=== PATIENT | female | born 1945 | race Caucasian/White ===

== ENCOUNTER 2016-11-06 20:10 | Emergency (ER) | payer OTHER ==
[~2016-11-06] VITALS: Ht 157.5 cm; Wt 76.9 kg
[~2016-11-06 20:10] MED LIST: AMLO2.5T PO; LISI-363 PO; ROSU5 PO; VITA500015 PO
[2016-11-06 20:25] VITALS: BP 206/87; PULSE 102; RESP 16; TEMP 97.9; O2SAT 94
[2016-11-06 20:42] VITALS: BP 186/84; PULSE 89; RESP 16; O2SAT 100
[2016-11-06 20:44] LABS: BLOOD, URINE SMALL (NEG); GLUCOSE,URINE NEG (NEG); KETONE, URINE NEG (NEG); PH, URINE 5.5 (5.0-8.5)
[2016-11-06] MEDS ORDERED: D-50TAB (20:51)
[2016-11-06] MEDS ORDERED: ASPI81TA81 (20:51)
[2016-11-06] MEDS ORDERED: AMLO2.5T PO (20:51)
[2016-11-06] MEDS ORDERED: ROSU5 PO (20:51)
[2016-11-06] MEDS ORDERED: LISI-515 PO (20:51)
[2016-11-06 20:52] LABS: NITRITE,URINE POS (NEG); URINE COLOR YELLOW (YELLW/STRAW)
[2016-11-06 20:54] LABS: BACTERIA, URINE MOD /hpf; COMMENT (UR) CULTURE INDICATED; CULTURE IF INDICATED CULTURE INDICATED; SQUAMOUS EPITHELIAL CELL URINE 0-5 /hpf (0-5)
--- NOTE | 2016-11-06 20:56 | PD ---
HPI Chief Complaint: Complaint Time Seen by Provider: 20:33 Travel History International Travel<30 days: No Contact w/Intl Traveler<30days: No Traveled to known affect area: No History of Present Illness HPI SINCE MONDAY HAS HAD BURNING ON URINATION, FREQUENCY AND URGENCY, STATES THAT SHE GETS THESE UTI ABOUT 2-3 A YEAR. STATES THAT SHE WILL MAKE APPT WITH UROLOGIST TO FURTHER INVESTIGATE IF THERE'S A REASON FOR FREQUENCY OF INFECTIONS. PATIENT HAS NO ALLEVIATING/AGGRAVATING FACTORS, AND APPARENTLY HAS ONLY ASSOCIATED SX OF CHILLS BUT NOT FEVER/N/V/D/BOTELLO/CP/ABD PAIN AT THIS POINT PFSH Past Medical History High Cholesterol: Yes Diminished Hearing: No Gastrointestinal Disorders: Yes (HEMORRHOIDS) Hypertension: Yes Immunizations Current: No Migraines: Yes Pneumonia: Yes (WALKING) ?: Not Menopausal: Yes : 1 Para: 1 Ovarian Cysts: Yes Past Surgical History Appendectomy: Yes Gynecologic Surgery: Yes (CYST REMOVED FROM RIGHT BREAST) Hysterectomy: Yes Oral Surgery: Yes Tonsillectomy: Yes Other Surgery: Yes (SINUS SURGERY TO "REMOVE A GROWTH") Social History Alcohol Use: Yes ("MAYBE A GLASS OF WINE ONCE A MONTH") Tobacco Use: No (QUIT 1999) Substance Use: No Allergies-Medications (Allergen,Severity, Reaction): Coded Allergies: Codeine (Verified Adverse Reaction, Severe, NAUSEA/VOMITING, 11/06/16) Reported Meds & Prescriptions Reported Meds & Active Scripts Active Reported D-5000 (Cholecalciferol) 5,000 Unit Tab Aspir-81 (Aspirin) 81 Mg Tabdr Crestor (Rosuvastatin Calcium) 5 Mg Tab 5 Mg PO DAILY Lisinopril 20 Mg Tab 20 Mg PO DAILY Amlodipine (Amlodipine Besylate) 2.5 Mg Tab 2.5 Mg PO DAILY Review of Systems Except as stated in HPI: all other systems reviewed are Neg Genitourinary: Positive: Urgency, Frequency, Dysuria Physical Exam Narrative GENERAL: SKIN: Warm and dry. HEAD: Atraumatic. Normocephalic. EYES: Pupils equal and round. No scleral icterus. No injection or drainage. ENT: No nasal bleeding or discharge. Mucous membranes pink and moist. NECK: Trachea midline. No JVD. CARDIOVASCULAR: Regular rate and rhythm. RESPIRATORY: No accessory muscle use. Clear to auscultation. Breath sounds equal bilaterally. GASTROINTESTINAL: Abdomen soft, non-tender, nondistended. MUSCULOSKELETAL: Extremities without clubbing, cyanosis, or edema. No obvious deformities. NEUROLOGICAL: Awake and alert. No obvious cranial nerve deficits. Motor grossly within normal limits. Five out of 5 muscle strength in the arms and legs. Normal speech. PSYCHIATRIC: Appropriate mood and affect; insight and judgment normal. Data Data Last Documented VS Vital Signs Date Time Temp Pulse Resp B/P Pulse Ox O2 Delivery O2 Flow Rate FiO2 11/06/16 20:42 89 16 186/84 100 Room Air 11/06/16 20:25 97.9 Orders Urinalysis - C+S If Indicated (11/06/16 20:28) Clonidine (Catapres) (11/06/16 21:00) Urine Culture (11/06/16 20:35) Labs Laboratory Tests Test 11/06/16 20:35 Urine Color YELLOW Urine Turbidity CLEAR Urine pH 5.5 Urine Specific Pharr 1.007 Urine Protein NEG mg/dL Urine Glucose (UA) NEG mg/dL Urine Ketones NEG mg/dL Urine Occult Blood SMALL Urine Nitrite POS Urine Bilirubin NEG Urine Leukocyte Esterase LARGE Urine RBC 4-9 /hpf Urine WBC 25-49 /hpf Urine WBC Clumps OCC Urine Squamous Epithelial 0-5 /hpf Cells Urine Bacteria MOD /hpf Microscopic Urinalysis Comment CULTURE INDICATED MDM Medical Decision Making Medical Screen Exam Complete: Yes Emergency Medical Condition: Yes Medical Record Reviewed: Yes Differential Diagnosis BACTERIAL UTI V YEAST INFECTION V DIVERTIC Narrative Course UA FOUND TO BE C/W UTI, GIVEN CIPRO IN ED, ALSO GIVEN CLONIDINE FOR BP, PT HAS YET TO TAKE HER NIGHT TIME MEDICINES. WILL D/C PATIENT ON PO CIPRO (BASED ON PREVIOUS CULTURE, SHE HAD E COLI UTI WHICH WAS SENSITIVE TO ALL ABX TESTED) Diagnosis Primary Impression: UTI Additional Impression: HTN Patient Instructions: General Instructions, Urinary Tract Infection in Women ( ED) Scripts Phenazopyridine (Pyridium)100 Mg [id number] Mg PO Q8H PRN (DYSURIA) #12 TAB Ref 0 Prov:Parth Sparrow MD 11/06/16 Ciprofloxacin 500 Mg [id number] Mg PO BID #14 TAB Prov:Parth Sparrow MD 11/06/16 Disposition: 01 DISCHARGE HOME Condition: Stable Parth Sparrow MD Nov 06, 2016 20:56
[2016-11-06] MEDS ORDERED: cloNIDine HCL 0.1 MG TAB PO ONE (21:00)
[2016-11-06] MEDS ORDERED: CIPROFLOXACIN 500 MG TAB PO ONE (21:00)
[2016-11-06] MEDS ORDERED: CIPR500T2 PO (21:02)
[2016-11-06] MEDS ORDERED: PHEN0.4T PO (21:02)
[2016-11-06 21:28] VITALS: BP 161/73; PULSE 85; RESP 16; O2SAT 100
== END 2016-11-06 21:54 | disposition home or self-care (01) ==
LOC: PHED 20:10
DX: N39.0 Urinary tract infection, site not specified (principal); I10 Essential (primary) hypertension; B96.20 Unspecified Escherichia coli [E. coli] as the cause of diseases classified elsewhere
CPT/HCPCS: 81001; 87077; 87086; 87186; 99284